=== PATIENT | female | born 1970 | race Caucasian/White ===

== ENCOUNTER → 2017-10-23 16:09 | Outpatient (CLI) | payer OTHER | END | disposition home or self-care (01) | LOC: D.MAMMO 10-01 16:00 | DX: Z12.31 Encounter for screening mammogram for malignant neoplasm of breast (principal) ==

== ENCOUNTER → 2021-01-18 14:41 | Outpatient (CLI) | payer OTHER | END | disposition home or self-care (01) | LOC: D.US 11:30 | PROVIDERS: ATTEND Family Medicine | DX: R22.1 Localized swelling, mass and lump, neck (principal) ==

== ENCOUNTER 2021-01-25 15:00 | Outpatient (CLI) | payer OTHER | END 2021-01-25 15:30 | disposition home or self-care (01) | LOC: D.MAMMO 15:00 | PROVIDERS: ATTEND Family Medicine | DX: E04.1 Nontoxic single thyroid nodule (principal) ==

== ENCOUNTER → 2021-01-28 11:03 | Outpatient (CLI) | payer OTHER | END | disposition home or self-care (01) | LOC: D.US 11:00 | PROVIDERS: ATTEND Family Medicine | DX: R22.1 Localized swelling, mass and lump, neck (principal) ==

== ENCOUNTER 2021-03-08 08:14 | Day surgery (SDC) | payer OTHER ==
[2021-03-07 16:03] LABS: BASOPHILS 0.1 % (0-2); EOSINOPHILS 3.4 % (0-7); HEMATOCRIT 37.8 % (36.0-48.0); HEMOGLOBIN 12.2 g/dL (12-16); IMMATURE GRANULOCYTES 0.2 % (0-5); LYMPHOCYTE ABS# 1.49 10x3/uL (1.18-3.74); LYMPHOCYTES 16.5 % (15-50); MCH 28.2 pg (26.0-34.0); MCHC 32.3 g/dL (31.0-37.0); MCV 87.5 fL (80.0-100.0); MONOCYTES 5.4 % (2-11); NEUTROPHIL ABS# 6.73 10x3/uL (1.56-6.13); NEUTROPHILS 74.4 % (40-80); PLATELET COUNT 218 10x3/uL (130-400); RBC 4.32 10x6/uL (4.00-5.40); RDW 14.3 % (11.5-14.5); WBC 9.1 10x3/uL (4.8-10.8)
[2021-03-07 16:09] LABS: ANION GAP 11.2 mmol/L (8-16); CALCIUM 8.9 mg/dL (8.5-10.1); CARBON DIOXIDE 29.8 mmol/L (21.0-32.0); CREATININE - SERUM 1.2 mg/dL (0.6-1.3)
[~2021-03-08] VITALS: Ht 160 cm; Wt 124.1 kg
[~2021-03-08 08:14] MED LIST: BASAGLAR K100 UNIT/1 SC; BUMEX2 MG PO; FARXIGA TAB 5MG PO; FLUTICASONE PRO16 GM NASAL; K-TAB10 MEQ PO; LISINOPRIL2.5 MG PO; NOVOLOG INJ FLE SQ; PIOGLITAZONE TAB 30M PO; SYNTHROID88 MCG PO; ULTRAM50 MG PO; ZOCOR40 MG PO
[2021-03-08 08:32] VITALS: Ht 160 cm; Wt 124.1 kg
[2021-03-08 08:47] LABS: HCG URINE NEGATIVE (NEGATIVE)
--- NOTE | 2021-03-08 11:59 | NUR ---
[address] DELACRUZ IN ROOM TO ASSESS AND LOOSEN DRESSING ON RIGHT HAND. INSTRUCTIONS GIVEN
--- NOTE | 2021-03-11 08:36 | OP ---
PATIENT NAME: CHASIDY GONZALEZ MEDICAL RECORD: [id number] :74 LOCATION:[facility] ADMISSION DATE: SURGEON: GILBERTO DELACRUZ DO DATE OF OPERATION: 03/08/2021 PROCEDURE PERFORMED: Right endoscopic carpal tunnel release. PREOPERATIVE DIAGNOSIS: Right carpal tunnel syndrome. POSTOPERATIVE DIAGNOSIS: Right carpal tunnel syndrome. INDICATIONS: Ms. Gonzalez is a 50-year-old female who has had bilateral early carpal tunnel syndrome for quite some time. She had nerve conduction study showing so, wants the right done first. She is aware of the risks including infection, bleeding, damage to nerves and vessels including median nerve, continued pain, loss of motion of the wrist, need for further surgery, even and she signed a consent. SURGEON: Gilberto Delacruz DO DESCRIPTION OF PROCEDURE: The patient was taken to the operative suite, laid in supine position, given general anesthetic and LMA was placed. The right upper extremity was then prepped and draped in sterile fashion. A timeout was performed and everyone was in agreeance with the correct site, side, patient and procedure. She had been given 2 grams of Ancef. I then exsanguinated the right upper extremity with an Esmarch, the tourniquet was inflated to 250 mmHg, it was up for 5 minutes. I then made an incision centered over the palmaris longus tendon, made careful dissection with Manuel. After making the incision bluntly, dissected with Manuel down the median nerve, we then released the forearm fascia there at the site with scissors from distal to proximal in the incision. I then used dilators and then the carpal tunnel under the transverse carpal ligament, brought in the sheath and brought in the camera, had a nice view of the transverse carpal ligament, used a rasp and a probe to ensure there was no transligamentous nerve, I did not see any. I then brought in blade, raised it up and transect the transverse carpal ligament and fat herniated down into the site. I then removed the instruments, used the long head of the Ragnell and scissors to make sure there was no more remaining fibers of the transverse carpal ligament and I did not see any. I then let the tourniquet down and injected site with 10 mL of 0.25% Marcaine with epinephrine. Then, Yimi Ribeiro, certified detention deputy closed the site with 5-0 Monocryl in inverted interrupted fashion, placed Steri-Strips, Adaptic, 4 x 4, Kerlix and Coban lightly wrapped on the wrist. She was then awakened and taken to recovery in stable condition. BLOOD LOSS: Minimal. COMPLICATIONS: None. TRANSINT:[id number] Voice Confirmation ID: [id number] DOCUMENT ID: [id number] OPERATIVE REPORT [id number] CHASIDY GONZALEZ MICHAEL D, DO at 0836 CC: [id number] DICTATION DATE: 03/08/21 1143 [facility]ER: 03/08/21 1549 [facility] 03/08/21 [facility] [address] [place] [address]
== END 2021-03-08 12:26 | disposition home or self-care (01) ==
LOC: D.OPS 08:14
PROVIDERS: Anesthesiology; ATTEND Orthopaedic Surgery
DX: G56.01 Carpal tunnel syndrome, right upper limb (principal)